=== PATIENT | male | born 1950 | race Caucasian/White ===

== ENCOUNTER 2019-09-01 22:32 | Emergency (ER) | payer OTHER, MEDICAID ==
[~2019-09-01] VITALS: Ht 167.6 cm; Wt 82.6 kg
[2019-09-01 22:38] VITALS: Ht 167.6 cm; Wt 82.6 kg
[2019-09-01 23:51] LABS: BASOPHIL % 0.3 % (0-2); PLATELET COUNT 275 x10^3mcL (130-400); RED CELL DISTRIBUTION WIDTH 13.1 % (11.5-14.5)
[2019-09-01 23:57] LABS: CALCIUM 8.5 mg/dL (8.5-10.1); CARBON DIOXIDE 27.2 mmol/L (21-32); CHLORIDE SERUM 104 mmol/L (98-107); CREATININE SERUM 0.9 mg/dL (0.7-1.3); GFR1 > 60 mL/min; GLUCOSE SERUM 115 mg/dL (74-106); SODIUM SERUM 139 mmol/L (136-145)
[2019-09-02 00:01] LABS: ALBUMIN 3.8 g/dL (3.4-5.0); ALKALINE PHOSPHATASE 65 U/L (46-116); ALT/SGPT 32 U/L (16-63); AST/SGOT 17 U/L (15-37); BILIRUBIN TOTAL 0.6 mg/dL (0.20-1.00); TOTAL PROTEIN, SERUM 7.4 g/dL (6.4-8.2)
[2019-09-02 00:21] VITALS: BP 120/71
== END 2019-09-02 00:21 | disposition home or self-care (01) ==
LOC: ED 22:32
PROVIDERS: Emergency Medicine
DX: S06.9X1A Unspecified intracranial injury with loss of consciousness of 30 minutes or less, initial encounter (principal); I10 Essential (primary) hypertension; F10.129 Alcohol abuse with intoxication, unspecified; W22.8XXA Striking against or struck by other objects, initial encounter; Y93.89 Activity, other specified; Y92.89 Other specified places as the place of occurrence of the external cause; Y99.8 Other external cause status
CPT/HCPCS: 36415; G0480; Q0092